=== PATIENT | male | born 1980 | race Caucasian/White ===

== ENCOUNTER 2017-08-31 15:43 | Emergency (ER) | payer SELFPAY ==
[2017-08-31] MEDS ORDERED: methylPREDNISolone 125 MG* 2 ML VIAL IM ONE (15:50)
[2017-08-31] MEDS ORDERED: EPINEPHRINE 1 MG/ML 1 ML VIAL IM ONE (15:50)
[2017-08-31] MEDS ORDERED: diPHENhydraMINE IV* 50 MG/ML 1 ml VIAL (BENADRYL) IM ONE (15:51)
[2017-08-31] MEDS ORDERED: Famotidine TAB* 20 MG PO ONE (15:51)
[2017-08-31 15:54] VITALS: BP 157/84
--- NOTE | 2017-08-31 15:59 | ED ---
Bite Injury/Animal - HPI Summary HPI Summary: 37M presents with bee sting 15 mins ago. He got stung in his posterior aspect of his face. He admits to SOB. His lips have been swelling. His face is red. He admits to hives spreading down chest. He denies any chest pain. No abdominal pain. No nausea no vomiting. No sore throat. No difficulty swallowing. Has never had this reaction before. Did not take anything since getting stung. Has no drug allergies. He is not asthmatic. - History of Current Complaint Chief Complaint: UCAllergicReaction Stated Complaint: BEE STING Time Seen by Provider: 08/31/17 15:47 Pain Intensity: 0 - Allergies/Home Medications Allergies/Adverse Reactions: Allergies Allergy/AdvReac Type Severity Reaction Status Date / Time No Known Allergies Allergy Verified 08/31/17 15:53 PMH/Surg Hx/FS Hx/Imm Hx Endocrine/Hematology History: Denies: Hx Diabetes, Hx Thyroid Disease Cardiovascular History: Denies: Hx Hypertension Respiratory History: Denies: Hx Asthma, Hx Chronic Obstructive Pulmonary Disease (COPD) GI History: Denies: Hx Ulcer Infectious Disease History: No Infectious Disease History: Denies: Hx Hepatitis, Hx Human Immunodeficiency Virus (HIV), Traveled Outside the in Last 30 Days - Social History Alcohol Use: None Substance Use Type: Reports: None Smoking Status (MU): Light Every Day Tobacco Smoker Review of Systems Negative: Fever Positive: Other - lip swelling Negative: Chest Pain Positive: Shortness Of Breath Positive: Rash All Other Systems Reviewed And Are Negative: Yes Physical Exam Triage Information Reviewed: Yes Vital Signs On Initial Exam: Initial Vitals Temp Pulse Resp BP Pulse Ox 98.8 F 118 21 157/84 94 08/31/17 15:48 08/31/17 15:48 08/31/17 15:48 08/31/17 15:48 08/31/17 15:48 Vital Signs Reviewed: Yes Appearance: Positive: Well-Appearing Skin: Positive: Warm, Dry, Other - urticaria down back and stomach Head/Face: Positive: Normal Head/Face Inspection Eyes: Positive: Normal, Conjunctiva Clear ENT: Positive: Pharynx normal, TMs normal, Other - angioedema to lips mild Respiratory/Lung Sounds: Positive: Clear to Auscultation, Breath Sounds Present Cardiovascular: Positive: Normal, RRR Musculoskeletal: Positive: Normal Neurological: Positive: Normal Psychiatric: Positive: Normal Diagnostics - Vital Signs Vital Signs Temp Pulse Resp BP Pulse Ox 08/31/17 15:48 98.8 F 118 21 157/84 94 - Laboratory Lab Statement: Any lab studies that have been ordered have been reviewed, and results considered in the medical decision making process. Re-Evaluation - Re-Evaluation First Eval Re-Evaluation Time: 16:22 Change: Improved Comment: swelling done Second Eval Re-Evaluation Time: 16:52 Change: Unchanged Comment: after one hour patient is completely better, no repeat sx Bite Injury Course/Dx - Course Course Of Treatment: 37M presents with bee sting 15 mins ago. He got stung in his posterior aspect of his face. He admits to SOB. His lips have been swelling. His face is red. He admits to hives spreading down chest. He denies any chest pain. No abdominal pain. No nausea no vomiting. No sore throat. No difficulty swallowing. Has never had this reaction before. Did not take anything since getting stung. Has no drug allergies. He is not asthmatic. On exam is mild angioedema. Face is red. Has hives going down back. Lungs clear to auscultation. Gave epi Benadryl/Medrol and Pepcid and patient interaction was stopped. patient states does not have insurance and can't afford meds. will have give dose of prednisone to go home with. told to continue benadryl. patient will est care to follow up about blood pressure as is elevated at this time although may be anxiety due to reaction. patient understand and agrees with plan. - Diagnoses Differential Diagnosis/HQI/PQRI: Positive: Other - local, uricaria, anaphylaxis Provider Diagnosis: Anaphylactic reaction, Bee sting, Elevated blood pressure reading Discharge - Sign-Out/Discharge Documenting (check all that apply): Patient Departure - Discharge Plan Condition: Good Disposition: HOME Prescriptions: EPINEPHrine [Epipen] 0.3 mg IJ ONCE #1 auto.injct Famotidine TAB* [Pepcid 20 MG TAB*] 20 mg PO BID #10 tab predniSONE TAB* [Deltasone TAB*] 50 mg PO DAILY #4 tab Patient Education Materials: Anaphylaxis (ED) Referrals: [facility] [place] PHYSICIAN REFERRAL [Outside] Additional Instructions: Take Benadryl every 6 hours for next 24 hours Take Pepcid twice a day for 5 days Take steroid once a day for 4 days starting tomorrow est care with primary Return to ED if shortness of breath, chest pain, or if develop any new or worsening symptoms - Billing Disposition and Condition Condition: GOOD Disposition: Home
[2017-08-31] MEDS ORDERED: predniSONE TAB* 20 MG PO ONE (16:52)
== END 2017-08-31 17:07 | disposition home or self-care (01) ==
LOC: EDSEX → UCEAST 15:43
DX: T63.441A Toxic effect of venom of bees, accidental (unintentional), initial encounter (principal); R22.0 Localized swelling, mass and lump, head; R03.0 Elevated blood-pressure reading, without diagnosis of hypertension; F17.200 Nicotine dependence, unspecified, uncomplicated; Y92.9 Unspecified place or not applicable
CPT/HCPCS: 96372; 99202; A9270-GY; G0463; J1200; J2930; J7512

== ENCOUNTER 2017-09-29 15:32 | Emergency (ER) | payer OTHER ==
[2017-09-29 15:46] VITALS: BP 132/87
[2017-09-29] MEDS ORDERED: Tetan/Diph/Pertus SYR(Tdap)* 0.5 ML SYR(BOOSTRIX) use SYR IM ONE (16:44)
--- NOTE | 2017-09-29 16:49 | UC ---
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 - History Of Current Complaint Chief Complaint: UCUpperExtremity Stated Complaint: FINGER INJURY Time Seen by Provider: 09/29/17 16:36 Hx Obtained From: Patient Laceration Location: Finger - OVERLYING RIGHT 1ST MCP JOINT Mechanism Of Injury: Sharp Trauma Onset/Duration: Sudden Onset, Lasting Hours, Still Present Severity: Mild Pain Intensity: 1 Pain Scale Used: 0-10 Numeric Aggravating Factors: Nothing Related History: Occupational Injury, Dominant Hand Right - Allergies/Home Medications Allergies/Adverse Reactions: Allergies Allergy/AdvReac Type Severity Reaction Status Date / Time No Known Allergies Allergy Verified 09/29/17 15:46 PMH/Surg Hx/FS Hx/Imm Hx Previously Healthy: Yes - Surgical History Surgical History: None - Family History Known Family History: Positive: Hypertension - Social History Alcohol Use: None Substance Use Type: None Smoking Status (MU): Heavy Every Day Tobacco Smoker Review of Systems Constitutional: Negative Skin: Other - LACERATION Respiratory: Negative Cardiovascular: Negative Gastrointestinal: Negative All Other Systems Reviewed And Are Negative: Yes Physical Exam Triage Information Reviewed: Yes Appearance: Well-Appearing, No Pain Distress, Well-Nourished Vital Signs: Initial Vital Signs Temp 99.4 F 09/29/17 15:43 Pulse 76 09/29/17 15:43 Resp 16 09/29/17 15:43 BP 132/87 09/29/17 15:43 Pulse Ox 97 09/29/17 15:43 Vital Signs Reviewed: Yes Eyes: Positive: Conjunctiva Clear ENT: Positive: Hearing grossly normal Neck: Positive: Supple Respiratory: Positive: No respiratory distress, No accessory muscle use Cardiovascular: Positive: Pulses Normal Abdomen Description: Positive: Soft Musculoskeletal: Positive: ROM Intact, No Edema Neurological: Positive: Alert Psychological: Positive: Age Appropriate Behavior Skin: Positive: Other - 14MM LINEAR LACERATION OVERLYING RIGHT 1ST MCP JOINT Laceration Repair - Laceration Repair 1 Description: Linear Laceration Size After Repair: Length (cm) - 1.4CM, Width (mm) - 0MM, Depth (mm) - 3MM Modified For Repair: No Irrigation With Pressure Irrigation Device: Yes Closure Material: Skin Adhesive, SteriStrips Laceration Course/Dx - Differential Dx - Laceration/Wound Provider Diagnoses: 1. LACERATION RIGHT HAND - REPAIRED. 2. TDAP BOOSTER Discharge - Sign-Out/Discharge Documenting (check all that apply): Patient Departure All imaging exams completed and their final reports reviewed: No Studies - Discharge Plan Condition: Stable Disposition: HOME Patient Education Materials: Finger Laceration (ED) Referrals: No Primary Care Phys,NOPCP [Primary Care Provider] - Additional Instructions: CALL THE NUMBER BELOW FOR ASSISTANCE IN ESTABLISHING WITH A PCP An additional resource available to assist in finding the appropriate physician for your health care needs is the [facility] ([facility]). You may contact them by calling [phone]. SEEK FOLLOW-UP IF YOU DEVELOP SPREADING REDNESS OF THE SKIN, PURULENT DRAINAGE, FEVER, INCREASED PAIN OR ANY OTHER CONCERNING SYMPTOMS. THE STERISTRIPS WILL FALL OFF ON THEIR OWN IN THE NEXT 1-2 WEEKS. DO NOT PUT ANY OINTMENT ON TOP OF THEM. DO NOT SUBMERGE IN WATER FOR PROLONGED PERIOD OF TIME. OKAY FOR BRIEF SHOWER AFTER 24 HOURS AND THEN BE SURE TO ALLOW TO DRY COMPLETELY. TETANUS IMMUNIZATION GIVEN (TDAP): You have been given an immunization against tetanus. Please record this in your records. In general, a booster is needed only once every 10 years. The tetanus shot protects against tetanus or "lockjaw," which is a complication of certain wound infections (the tetanus shot cannot protect against the actual infection). The immunization site may become warm and red due to local reaction. If this occurs, apply warm compresses and take aspirin or ibuprofen to reduce inflammation and discomfort. Return for evaluation if the reaction becomes severe. - Billing Disposition and Condition Condition: STABLE Disposition: Home
== END 2017-09-29 18:24 | disposition home or self-care (01) ==
LOC: UCEAST 15:32
DX: S61.511A Laceration without foreign body of right wrist, initial encounter (principal); W26.8XXA Contact with other sharp object(s), not elsewhere classified, initial encounter; Y92.9 Unspecified place or not applicable
CPT/HCPCS: 12001; 90471; 90715; 99211; G0463

== ENCOUNTER 2018-03-06 09:20 | Emergency (ER) | payer OTHER ==
[2018-03-06 09:34] VITALS: BP 141/92
--- NOTE | 2018-03-06 09:57 | UC ---
Shoulder Pain HPI - HPI Summary HPI Summary: 38 yo male presents s/p fall. He tells me that yesterday he was at work and was on a 10 foot ladder. The bottom of the ladder slipped and he fell onto his left shoulder/side onto concrete. Did not hit his head or have LOC. He continued working yesterday through the pain. Today has increased pain and difficulty moving his left shoulder. Pain radiates down to his elbow. Has not taken anything for the discomfort because he does not like taking medicine. Denies numbness or tingling. - History of Current Complaint Chief Complaint: UCUpperExtremity Stated Complaint: SHOULDER PAIN Time Seen by Provider: 03/06/18 09:57 Hx Obtained From: Patient Onset/Duration: Sudden Onset Timing: Constant Severity Initially: Moderate Severity Currently: Severe Pain Intensity: 9 - Allergies/Home Medications Allergies/Adverse Reactions: Allergies Allergy/AdvReac Type Severity Reaction Status Date / Time No Known Allergies Allergy Verified 03/06/18 09:34 PMH/Surg Hx/FS Hx/Imm Hx - Additional Past Medical History Additional PMH: None - Surgical History Surgical History: None - Family History Known Family History: Positive: Hypertension - Social History Occupation: Employed Full-time Lives: With Family Alcohol Use: None Substance Use Type: None Smoking Status (MU): Heavy Every Day Tobacco Smoker Review of Systems All Other Systems Reviewed And Are Negative: Yes Constitutional: Positive: Negative Respiratory: Positive: Negative Cardiovascular: Positive: Negative Neurovascular: Positive: Negative Musculoskeletal: Positive: Other: - Left shoulder pain Neurological: Positive: Negative Psychological: Positive: Negative Physical Exam - Summary Physical Exam Summary: GENERAL: NAD. WDWN. No pain distress. SKIN: No rashes, sores, lesions, or open wounds. CHEST: No accessory muscle use. Breathing comfortably and in no distress. CV: Pulses intact radial and ulnar. Cap refill <2seconds MSK: LEFT SHOULDER: TTP at anterior inferior aspect of shoulder. Flexion to ~ 45deg before pain stops him. Occupational Therapy Teacher strength intact. No edema or obvious bony deformities. Unable to perform specialized testing due to pain and limited ROM. LEFT ELBOW: Mild TTP about whole elbow. FROM including supination and pronation. NEURO: Alert. Sensations intact hand and all fingers. PSYCH: Age appropriate behavior. Triage Information Reviewed: Yes Vital Signs: Initial Vital Signs Temp 98 F 03/06/18 09:30 Pulse 85 01/29/19 09:30 Resp 16 03/06/18 09:30 BP 141/92 03/06/18 09:30 Pulse Ox 100 03/06/18 09:30 Vital Signs Reviewed: Yes Shoulder Course/Dx - Course Course Of Treatment: XR shoulder: IMPRESSION: SMALL BONE FRAGMENT ALONG THE INFERIOR GLENOID WHICH MAY REFLECT A NONDISPLACED FRACTURE. XR elbow: IMPRESSION: NO ACUTE OSSEOUS INJURY. IF SYMPTOMS PERSIST, RECOMMEND REPEAT IMAGING. Pt placed in a sling and he was given toradol IM in the clinic with mild pain relief. Discussed results with pt. HARPREET and XR findings suspicious for a bony bankart lesion. Advised to use the sling as much as possible. I called Occupational Medicine and schedule him an appointment for tomorrow at 1300 for follow up. Pt voiced understanding. - Differential Dx/Diagnosis Provider Diagnosis: Shoulder fracture, left Discharge - Sign-Out/Discharge Documenting (check all that apply): Patient Departure All imaging exams completed and their final reports reviewed: Yes - Discharge Plan Condition: Stable Disposition: HOME Prescriptions: Naproxen [Naproxen 500 mg tab] 500 mg PO BID PRN #30 tablet PRN Reason: Pain Patient Education Materials: Shoulder Pain (ED) Forms: *Work Release Referrals: Chico Solis MD [Medical Doctor] - 03/07/18 1:00 pm No Primary Care Phys,NOPCP [Primary Care Provider] - Additional Instructions: If you develop a fever, shortness of breath, chest pain, new or worsening symptoms - please call your PCP or go to the ED. Your blood pressure was high at todays visit. Please see your primary provider within 4 weeks for recheck and re-evaluation. 1) Please use your sling as much as possible 2) You have an appointment tomorrow with Dr. Solis at 1:00pm. Please arrive 15- 20minutes early to fill out paperwork. 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
[2018-03-06] MEDS ORDERED: Ketorolac INJ* 60 MG/2 ML VIAL IM ONE (10:01)
== END 2018-03-06 11:11 | disposition home or self-care (01) ==
LOC: UCEAST 09:20
DX: S42.92XA Fracture of left shoulder girdle, part unspecified, initial encounter for closed fracture (principal); F17.200 Nicotine dependence, unspecified, uncomplicated; W11.XXXA Fall on and from ladder, initial encounter; Y92.9 Unspecified place or not applicable; Y99.0 Civilian activity done for income or pay
CPT/HCPCS: 96372; 99212; G0463; J1885

== ENCOUNTER 2018-04-01 15:33 | Emergency (ER) | payer SELFPAY ==
--- NOTE | 2018-04-01 15:59 | ED ---
Palpitations / Dysrhythmia - HPI Summary HPI Summary: This patient is a 38 year old M presenting to [facility] with a chief complaint of irregular heart rate since earlier today. Patient reports left shoulder pain. The patient received a cortisone shot in his shoulder 2 days ago, which temporarily alleviated his shoulder pain but it returned today. He states that his BP was 124/84 two days ago and now it is elevated. Vitals in the room: HR 94 bpm BP 158/98. - History of Current Complaint Chief Complaint: EDDysrhythmPalp Time Seen by Provider: 04/01/18 15:43 Hx Obtained From: Patient Onset/Duration: Sudden Onset, Lasting Hours Character: Irregular - Allergy/Home Medications Allergies/Adverse Reactions: Allergies Allergy/AdvReac Type Severity Reaction Status Date / Time No Known Allergies Allergy Verified 04/01/18 15:39 PMH/Surg Hx/FS Hx/Imm Hx Endocrine/Hematology History: Denies: Hx Diabetes, Hx Thyroid Disease Cardiovascular History: Denies: Hx Hypertension, Hx Pacemaker/ICD Respiratory History: Denies: Hx Asthma, Hx Chronic Obstructive Pulmonary Disease (COPD) GI History: Denies: Hx Ulcer History: Denies: Hx Renal Disease Sensory History: Denies: Hx Hearing Aid Psychiatric History: Denies: Hx Panic Disorder Infectious Disease History: No Infectious Disease History: Denies: Hx Hepatitis, Hx Human Immunodeficiency Virus (HIV), Traveled Outside the [place] in Last 30 Days - Family History Known Family History: Positive: Hypertension - Social History Alcohol Use: None Substance Use Type: Reports: None Smoking Status (MU): Heavy Every Day Tobacco Smoker Review of Systems Positive: Palpitations Positive: Myalgia - l shoulder pain All Other Systems Reviewed And Are Negative: Yes Physical Exam - Summary Physical Exam Summary: Appearance: The patient is well-nourished in no acute distress and in no acute pain. Skin: The skin is warm and dry and skin color reflects adequate perfusion. HEENT: The head is normocephalic and atraumatic. The pupils are equal and reactive. The conjunctivae are clear and without drainage. Nares are patent and without drainage. Mouth reveals moist mucous membranes and the throat is without erythema and exudate. The external ears are intact. The ear canals are patent and without drainage. The tympanic membranes are intact. Neck: The neck is supple with full range of motion and non-tender. There are no carotid bruits. There is no neck vein distension. Respiratory: Chest is non-tender. Lungs are clear to auscultation and breath sounds are symmetrical and equal. Cardiovascular: Heart is regular rate and rhythm. There is no murmur or rub auscultated. There is no peripheral edema and pulses are symmetrical and equal. Abdomen: The abdomen is soft and non-tender. There are normal bowel sounds heard in all four quadrants and there is no organomegaly palpated. Musculoskeletal: There is no back tenderness noted. Extremities are non-tender with full range of motion. There is good capillary refill. There is no peripheral edema or calf tenderness elicited. Neurological: Patient is alert and oriented to person, place and time. The patient has symmetrical motor strength in all four extremities. Cranial nerves are grossly intact. Deep tendon reflexes are symmetrical and equal in all four extremities. Psychiatric: The patient has an appropriate affect and does not exhibit any anxiety or depression Triage Information Reviewed: Yes Vital Signs On Initial Exam: Initial Vitals Temp Pulse Resp BP Pulse Ox 98.8 F 90 16 160/107 98 04/01/18 15:35 04/01/18 15:35 04/01/18 15:35 04/01/18 15:35 04/01/18 15:35 Vital Signs Reviewed: Yes Diagnostics - Vital Signs Vital Signs Temp Pulse Resp BP Pulse Ox 04/01/18 15:48 90 21 158/98 96 04/01/18 15:46 16 04/01/18 15:35 98.8 F 90 16 160/107 98 - Laboratory Result Diagrams: 04/01/18 16:23 04/01/18 16:23 Lab Statement: Any lab studies that have been ordered have been reviewed, and results considered in the medical decision making process. - EKG 16:22 Cardiac Rate: NL - 82 bpm EKG Rhythm: Sinus Rhythm ST Segment: Normal Ectopy: None Course/Dx - Course Course Of Treatment: Mr. Flower presented complaining of the feeling like his heart is having an extra strong beat periodically. He had a bad fall about a month ago and hurt his left shoulder. MRI showed some fluid in the joint and some other problems and Dr. Castillo given him an injection in the left shoulder on Monday which is 2 days ago. He was kept on a monitor which was unremarkable here in the emergency department. Labs were obtained which were also only remarkable for mildly elevated white blood cell count of 16,000. He states that he the pain in his left shoulder got significantly better after the injection but today it is worse. I spoke with Dr. Arambula who recommended follow- up with Dr. Castillo. It's likely that the bupivacaine portion of the injection is worn off and the steroid portion is not yet kicked in. The patient is nontoxic in appearance with stable vital signs and agreeable to the plan. - Diagnoses Provider Diagnoses: Palpitations Discharge - Sign-Out/Discharge Documenting (check all that apply): Patient Departure - discharge Patient Received Moderate/Deep Sedation with Procedure: No - Discharge Plan Condition: Stable Disposition: HOME Patient Education Materials: Heart Palpitations (ED) Referrals: Joss Castillo MD [Medical Doctor] - 1 Week [facility] [place] [facility] REFERRAL [Outside] Additional Instructions: Follow up with your primary care physician and Dr. Castillo within the next week. - Billing Disposition and Condition Condition: STABLE Disposition: Home - Attestation Statements Document Initiated by Stephen: Yes Documenting Scribe: Mele Webber Provider For Whom Stephen is Documenting (Include Credential): Bobby Sanderson MD Scribe Attestation: IMele, scribed for Bobby Sanderson MD on 04/01/18 at 1925. Scribe Documentation Reviewed: Yes Provider Attestation: The documentation as recorded by the Mele meza accurately reflects the service I personally performed and the decisions made by me, Bobby Sanderson MD Status of Scribe Document: Ready
[2018-04-01 16:29] LABS: ABS Basophils 0.1 10^3/ul (0-0.2); ABS Eosinophils 0 10^3/ul (0-0.6); ABS Lymphocytes 2.1 10^3/ul (1.0-4.8); ABS Neutrophils 13.1 10^3/ul (1.5-7.7); ABS Nucleated RBC 0 10^3/ul; Eosinophil % 0.2 %; Hematocrit 46 % (42-52); Hemoglobin 16.2 g/dl (14.0-18.0); Mean Corpuscular HGB Conc 35 g/dl (31-36); Mean Corpuscular Hemoglobin 29 pg (27-31); Mean Corpuscular Volume 84 fL (80-94); Mean Platelet Volume 7.7 fL (7.4-10.4); Nucleated Red Blood Cells % 0; Platelet Count 263 10^3/ul (150-450); Red Blood Count 5.53 10^6/ul (4.00-5.40); Red Cell Distribution Width 13 % (10.5-15); White Blood Count 16.3 10^3/ul (3.5-10.8)
[2018-04-01 16:47] LABS: ALT 21 U/L (7-52); AST 11 U/L (13-39); Albumin 5.1 g/dL (3.2-5.2); Albumin/Globulin Ratio 1.9 (1-3); Alkaline Phosphatase 66 U/L (34-104); Anion Gap 8 mmol/L (2-11); BUN/Creatinine Ratio 18.2 (8-20); Blood Urea Nitrogen 18 mg/dL (6-24); CO2 Carbon Dioxide 26 mmol/L (22-32); Calcium 9.4 mg/dL (8.6-10.3); Chloride 103 mmol/L (101-111); EGFR African American 101.8 (>60); EGFR Non-African American 84.2 (>60); Globulin 2.7 g/dL (2-4); Glucose 114 mg/dL (70-100); Magnesium 2.1 mg/dL (1.9-2.7); Potassium 3.9 mmol/L (3.5-5.0); Sodium 137 mmol/L (135-145); Total Protein 7.8 g/dL (6.4-8.9)
[2018-04-01 17:58] LABS: C Reactive Protein < 1.00 mg/L (<8.01)
[2018-04-01 18:59] VITALS: BP 155/104
== END 2018-04-01 18:33 | disposition home or self-care (01) ==
LOC: ED 15:33
DX: R00.2 Palpitations (principal); M25.512 Pain in left shoulder; F17.200 Nicotine dependence, unspecified, uncomplicated
CPT/HCPCS: 36415; 80053; 83605; 83735; 84443; 84484; 85025; 86140; 93005; 99283

== ENCOUNTER 2018-07-18 11:44 | Day surgery (SDC) | payer OTHER ==
--- NOTE | 2018-06-19 11:55 | HP ---
PREOPERATIVE HISTORY AND PHYSICAL: DATE OF SURGERY: 06/27/18 ATTENDING SURGEON: Dr. Joss Castillo* (dictated by ARTHUR Myers). PROCEDURE: Left shoulder arthroscopic rotator cuff repair, decompression, debridement, and possible subpectoral biceps tenodesis and arthroscopic excision of distal clavicle. CHIEF COMPLAINT: Left shoulder. HISTORY OF PRESENT ILLNESS: Mukul is a 38-year-old male who presents to the clinic for left shoulder pain due to partial rotator cuff tear, AC joint arthritis, and biceps tendinitis. He has failed conservative measures and therefore agreed to undergo a left shoulder arthroscopic rotator cuff repair, decompression, debridement, and possible subpectoral biceps tenodesis, arthroscopic excision of distal clavicle with Dr. Castillo on 06/27/18. PAST MEDICAL HISTORY: 1. Hypertension. 2. Heart palpitations. PAST SURGICAL HISTORY: No prior surgeries. FAMILY HISTORY: Positive for diabetes, heart disease, hypertension, cancer. SOCIAL HISTORY: He lives with his daughter. He works as a kahn. He is a smoker, a pack per day. He denies alcohol consumption. He is right-hand dominant. MEDICATIONS: Naproxen 500 mg 1 by mouth twice a day as needed for pain. ALLERGIES: No known drug allergies. REVIEW OF SYSTEMS: A 14-point review of systems was reviewed with the patient. Positive for current complaint, otherwise negative. Denies fever, chills, chest pain, shortness of breath, history of bleeding disorder, history of DVT or PE. PHYSICAL EXAMINATION GENERAL: A 38-year-old well-developed, well-nourished man, in no acute distress. VITALS: Height 69, weight 245, pulse 99, blood pressure 159/96, temperature 95.2. BMI 36.2. HEENT: Normocephalic, atraumatic. PERRLA. Throat clear. NECK: Supple. PULMONARY: Lungs are clear to auscultation bilaterally. No wheezing, rhonchi, or rales. CARDIO: Regular rate and rhythm. S1, S2. No murmurs, gallops, or rubs. No edema. ABDOMEN: Positive bowel sounds, soft, nontender. NEURO: Alert and oriented x3. Cranial nerves grossly intact. MUSCULOSKELETAL: Left upper extremity: Skin is intact. No warmth or erythema. Tenderness over the biceps and the AC joint. Forward flexion 170, abduction to 95, external rotation 75, internal rotation to lumbar spine. +5/5 strength to infraspinatus and subscapularis testing, +4/5 to supraspinatus with pain. Positive impingement, Speed, Marte, Devine. +2 radial pulse. Sensation intact to light touch distally. DIAGNOSTIC STUDIES: MRI revealed partial-thickness tear of the rotator cuff, biceps tendinitis, and AC joint arthritis. IMPRESSION: Left shoulder acromioclavicular joint arthritis with partial thickness rotator cuff tear and biceps tendinitis. PLAN: The patient is scheduled to undergo left shoulder arthroscopic rotator cuff repair, decompression, debridement, and possible subpectoral biceps tenodesis, arthroscopic excision of distal clavicle with Dr. Castillo on . He is instructed to stop smoking prior to surgery. Tylenol and ibuprofen will be used for postop pain management because he does not want narcotics. He will follow up 10 to 14 days postop for followup and suture removal. ARTHUR MYERS [id number]/[facility] #: [id number] [facility]PITALNorah
[~2018-07-18 11:44] MED LIST: Buffered Lidocaine 1% SYRIN* 1 ML/SYRINGE INTRADERM ONE; Lactated Ringers 1000 ML Bag* 1,000 ML IV SCH
[2018-07-18] MEDS ORDERED: ceFAZolin 2 GM PREMIX in ORs 2 GM/50 ML BAG ONE (12:27)
[2018-07-18] MEDS ORDERED: Propofol* 10 MG/ML 20 ML BTL ONE (13:20)
[2018-07-18] MEDS ORDERED: Rocuronium* 10 MG/ML VIAL ONE ×2 (13:21→14:56)
[2018-07-18] MEDS ORDERED: Lidocaine 2% PF * 5 ML VIAL ONE ×2 (13:21→16:09)
[2018-07-18] MEDS ORDERED: Midazolam* 1 MG/ML 2 ML VIAL (2 MG) ONE (13:22)
[2018-07-18] MEDS ORDERED: fentaNYL* 50 MCG/ML 2 ML VIAL (100 MCG VIAL) ONE (13:22)
[2018-07-18] MEDS ORDERED: Acetaminophen IV 1GM/100ML * 100 ML ONE (13:25)
[2018-07-18] MEDS ORDERED: Glycopyrrolate IV* 0.2 MG/ML 1 ML VIAL ONE (13:26)
[2018-07-18] MEDS ORDERED: Neostigmine Methylsulfate* 1 MG/ML 10 ML VIAL (1 mg/ml) ONE (13:26)
[2018-07-18] MEDS ORDERED: Lidocaine 1%* 5 ML VIAL ONE (14:11)
[2018-07-18] MEDS ORDERED: Labetalol IV* 5 MG/ML 20 ML VIAL ONE (15:05)
[2018-07-18] MEDS ORDERED: Succinylcholine* 20 MG/ML 10 ML VIAL ONE (15:05)
[2018-07-18] MEDS ORDERED: HYDROmorphone INJ1* 1 MG/ML SYRINGE ONE ×2 (15:06→17:14)
[2018-07-18] MEDS ORDERED: Naloxone* 0.4 MG/ML 1 ML VIAL IV PRN (15:10)
[2018-07-18] MEDS ORDERED: HYDROmorphone INJ1* 1 MG/ML SYRINGE IV PRN (15:10)
[2018-07-18] MEDS ORDERED: DiMENhydriNATE IV* 50 MG/ML VIAL IV PUSH PRN (15:10)
[2018-07-18] MEDS ORDERED: Acetaminophen TAB* 325 MG PO PRN (15:10)
[2018-07-18] MEDS ORDERED: oxyCODONE TAB* 5 MG TAB PO PRN (15:10)
[2018-07-18] MEDS ORDERED: Ropivacaine 0.2% * 2 MG/ML VIAL ONE (15:34)
[2018-07-18] MEDS ORDERED: Metoclopramide IV* 5 MG/ML 2 ML VIAL ONE (15:44)
[2018-07-18] MEDS ORDERED: Ketorolac INJ* 30 MG/ML 1 ML VIAL ONE (15:44)
[2018-07-18] MEDS ORDERED: Ondansetron INJ* 2 MG/ML VIAL ONE (15:44)
[2018-07-18 17:24] VITALS: BP 128/79
--- NOTE | 2018-07-19 00:48 | OP ---
DATE OF OPERATION: 07/18/18 - [facility] DATE OF : 78 ATTENDING SURGEON: Joss Castillo MD ELECTRONIC PAGE MAKEUP SYSTEM OPERATOR: ARTHUR Bang and Ezio , a PA student. An lpn medical assistant was needed for the entirety of the case to help with positioning and retraction and was utilized through all portions of the case. ANESTHESIOLOGIST: Dr. Castillo. ANESTHESIA: General interscalene block. PRE-OP DIAGNOSES: Left shoulder high-grade partial-thickness tear of the rotator cuff, bicipital tendonitis. POST-OP DIAGNOSES: Left shoulder high-grade partial-thickness tear of the rotator cuff, bicipital tendonitis. OPERATIVE PROCEDURES: Left shoulder arthroscopy with: 1. Extensive glenohumeral debridement including debridement of the labrum. 2. Subacromial decompression with acromioplasty. 3. Rotator cuff repair with Regeneten patch. 4. Subpectoral biceps tenodesis. COMPLICATIONS: None. ESTIMATED BLOOD LOSS: Minimal. IMPLANTS: Regeneten patch size medium and 1 Q-Fix 2.8 mm. INDICATIONS: Mukul Flower is a 38-year-old male who has sustained a work- related injury, had significant impingement and pain. He has failed conservative management. He was also diagnosed with AC-joint arthritis. At the time of the surgery, he had no AC joint pain and elected to not have a distal clavicle excision. He had more biceps and anterolateral pain. The risks and benefits of surgery were discussed at length, included but not limited to bleeding; infection; damage to nerves, vessels, surrounding structures; wound nonhealing; persistent pain; need for surgery; scaring; stiffness; incomplete relief of symptoms; and risks of anesthesia. DESCRIPTION OF PROCEDURE: The patient was greeted in the preoperative area by the attending surgeon. Correct extremity was marked. Consent was confirmed. The patient underwent interscalene nerve block by the anesthesiologist, after which he was brought back to the operating suite. He was placed in the supine position on the operating room table and then underwent general anesthesia and endotracheal intubation. After which, he was placed right lateral decubitus position. All bony prominences were padded, secured with a peg board. The left arm was prepped and draped in the usual sterile fashion beginning with chlorhexidine soap, scrub, and alcohol wipe and a final prep with ChloraPrep. After appropriate surgical pause indicating site, side, procedure, administration of antibiotics, then a standard posterolateral portal was made sharp with an 11 blade. Scope was introduced into the joint. It was difficult to get through glenohumeral joint to start with. The subacromial space worked again. The lateral portal was made in an [id number]. There was abundant significant thick bursal tissue that was there. Also the patient's skin and tissue around there is more tough than normal, difficult to move the camera around. An extensive subacromial decompression was done with very hemorrhagic hyperemic tissue. Electrocautery device was used to maintain hemostasis. The under-surface of the acromion was skeletonized. The cuff was visualized. After this was done, the subacromial space was insufflated. The attention was directed to the glenohumeral joint. The scope was positioned in the glenohumeral joint. Again, the tissue quality was quite tough and dense. It was difficult to mobilize any joint itself, but there were grade 0 changes to the glenohumeral joint. The posteroanterior labrum had some mild fraying. The shaver was used to debride th anterior and superior labrum. There was obvious damage to the biceps daja with erythema, although the superior labrum anchor appeared to be intact. The biceps was then tenotomized because it was subluxed for later tenodesis. The subscap was intact. There was undersurface tearing of the supraspinatus tendon that was moderate to high grade and this was debrided back using a shaver. Once debridement was completed, attention was directed to the subacromial space again. The scope was positioned in the subacromial space. The 4-0 oval thomas was used to do a gentle acromioplasty to remove the anterolateral spur. The previously defined partial thickness tear in the rotator cuff was identified and then the decision was made to proceed with Regeneten patch. The Regeneten patch was brought to the field and placed under direct arthroscopic visualization. The Regeneten was then placed appropriately through a separate stab incision. A cannula was placed to facilitate tendon latosha and this secured the graft medially. Once this was done, the lateral bone latosha were then placed using lateral portal and this acted to secure the graft laterally. The graft was checked again and the shoulder was taken through gentle range of motion. The graft appeared to be stable. Final images were obtained. The wounds were copiously irrigated with sterile saline. Attention was directed to the biceps. The bed was air planed to the side and a 15 blade was used to make the incision. The soft tissues were carefully dissected to expose the pec tendon. The tissue was very scared and dense to get through throughout his whole shoulder. Once this was carefully removed and elevated the biceps tendon was visualized and it was readily identified. It was brought to the wound. It had significant synovitis and erythema and tendonitis. The groove was then prepared in the usual fashion using electrocautery device, red ball rasp, and osteotome to allow for bony bleeding bed. The Q-Fix drill guide was then drilled unicortically and the Q-Fix was deployed with excellent purchase. The sutures were then passed through the tendon 1 cm across the musculotendinous junction. These were passed in a Garrick-Kin type configuration. The excess stump was excised. The biceps was then shuttled back to the wound and tied down. The wounds were then copiously irrigated with sterile saline. The anterior wound was closed in layers with 3-0 Monocryl. The portals were closed with 3-0 nylon. Sterile-dressing were applied. A Cryo/Cuff and UltraSling were applied. He was awoken from anesthesia and transferred to PACU in stable condition. POSTOPERATIVE PLAN: He will be nonweightbearing. He will wear sling for about 4 weeks. He will start therapy within the next 3 to 5 days, discharged on pain medication and antibiotics. DVT prophylaxis was considered, but deferred due to no previous personal or family history. I will see the patient back in 10 to 14 days. [id number]/[facility] #: [id number] [facility]ERNorah
== END 2018-07-18 18:30 | disposition home or self-care (01) ==
LOC: OR 11:44
PROVIDERS: ATTEND Orthopaedic Surgery
DX: S46.012A Strain of muscle(s) and tendon(s) of the rotator cuff of left shoulder, initial encounter (principal); M75.22 Bicipital tendinitis, left shoulder; M75.42 Impingement syndrome of left shoulder; G89.18 Other acute postprocedural pain; M19.012 Primary osteoarthritis, left shoulder; I10 Essential (primary) hypertension; R00.2 Palpitations; F17.210 Nicotine dependence, cigarettes, uncomplicated; X58.XXXA Exposure to other specified factors, initial encounter; Y92.9 Unspecified place or not applicable; Y99.0 Civilian activity done for income or pay
CPT/HCPCS: C1713; C1776; J0330; J0690; J1170; J1885; J2250; J2405; J2704; J2710; J2765; J2795; J3010